=== PATIENT | male | born 1980 | race Caucasian/White ===

== ENCOUNTER → 2022-06-03 | Outpatient (CLI) | payer OTHER ==
[2022-06-03 17:27] LABS: C REACTIVE PROTEIN QUANTITATIV < 0.30 MG/DL (0.00-0.30); NT-PRO BNP 30 PG/ML (<125)
[2022-06-03 17:57] LABS: CORTISOL PM 2.5 UG/DL (3.1-16.7); TOTAL 25(OH) VITAMIN D 14.8 NG/ML (30.0-100.0)
== END ==
LOC: M LAB 15:41
PROVIDERS: ATTEND Internal Medicine Critical Care Medicine
DX: U09.9 Post COVID-19 condition, unspecified (principal)

== ENCOUNTER → 2022-07-09 | Outpatient (CLI) | payer OTHER | LOC: M CARPUL 07:12 | PROVIDERS: ATTEND Internal Medicine Critical Care Medicine | DX: R06.00 Dyspnea, unspecified (principal); R94.2 Abnormal results of pulmonary function studies ==

== ENCOUNTER → 2022-08-06 | Outpatient (CLI) | payer OTHER | LOC: M LAB 08:29 | PROVIDERS: ATTEND Internal Medicine Critical Care Medicine | DX: E27.40 Unspecified adrenocortical insufficiency (principal) ==

== ENCOUNTER → 2022-09-17 | Outpatient (CLI) | payer OTHER ==
[~2022-09-17] MED LIST: ISOVUE-300 61% 50ML VIAL ONE; LIDOCAINE 1% MDV 20ML VIAL ONE; TRIAMCINOLONE ACETONIDE SUSP 40MG/ML 1ML VIAL ONE
== END ==
LOC: M PLAIMG 14:40
PROVIDERS: ATTEND Student in an Organized Health Care Education/Training Program
DX: M25.511 Pain in right shoulder (principal)

== ENCOUNTER → 2022-09-22 | Outpatient (CLI) | payer OTHER | LOC: M PLAIMG 13:07 | PROVIDERS: ATTEND Internal Medicine Critical Care Medicine | DX: R91.8 Other nonspecific abnormal finding of lung field (principal) ==

== ENCOUNTER 2022-10-27 12:03 | Day surgery (SDC) | payer OTHER ==
[~2022-10-27] VITALS: Ht 185.4 cm; Wt 112.2 kg
[~2022-10-27 12:03] MED LIST changes: +FLUT22IN; -ISOVUE-300 61% 50ML VIAL ONE; -LIDOCAINE 1% MDV 20ML VIAL ONE; +LIDOCAINE 2% 100MG/5ML SDV (FOR ANES.) As Ordered ONE; +NS 1,000 ML IV ONE; +PROA1AER2; -TRIAMCINOLONE ACETONIDE SUSP 40MG/ML 1ML VIAL ONE; +propofoL 200 MG/20 ML VIAL As Ordered ONE
[2022-10-27 13:22] VITALS: BP 120/69
== END 2022-10-27 13:37 | disposition home or self-care (01) ==
LOC: M SDC 12:03
PROVIDERS: ATTEND Internal Medicine Gastroenterology
DX: R19.7 Diarrhea, unspecified (principal); J45.909 Unspecified asthma, uncomplicated; Z88.0 Allergy status to penicillin; Z79.51 Long term (current) use of inhaled steroids